=== PATIENT | male | born 1985 ===

== ENCOUNTER 2017-04-13 03:13 | Emergency (ER) | payer SELFPAY ==
[2017-04-13 03:55] VITALS: RESP 18; TEMP 98.2
--- NOTE | 2017-04-13 03:57 | ED PDOC ---
Arrival/HPI - General Chief Complaint: Alcohol Ingestion Time Seen by Provider: 04/13/17 03:33 Historian: Patient - History of Present Illness Narrative History of Present Illness (Text): 04/13/17 03:45 32 year old male brought in by EMS, who presents to the emergency department for public intoxication. Patient admitted to drinking alcohol this evening. Patient denies any drug use. At presents, patient is awake and alert but inebriated. No somatic complaints offered. Time/Duration: 1-3 hours Symptom Onset: Gradual Symptom Course: Unchanged Severity Level: Mild Context: Street Past Medical History - Provider Review Nursing Documentation Reviewed: Yes - Psychiatric Hx Substance Use: No Family/Social History - Physician Review Nursing Documentation Reviewed: Yes Family/Social History: No Known Family HX Smoking Status: Unknown If Ever Smoked Hx Alcohol Use: Yes Hx Substance Use: No Allergies/Home Meds Allergies/Adverse Reactions: Allergies No Known Allergies Allergy (Verified 04/13/17 03:37) Home Medications: Home Meds Medication Instructions Recorded Confirmed Unobtainable 04/13/17 04/13/17 Review of Systems - Review of Systems Systems not reviewed;Unavailable: Intoxicated Physical Exam Vital Signs Reviewed: Yes Vital Signs Temp Pulse Resp BP Pulse Ox 04/13/17 03:55 98.2 F 81 18 130/72 95 Temperature: Afebrile Blood Pressure: Normal Pulse: Regular Respiratory Rate: Normal Appearance: Positive for: Other (intoxicated) Pain Distress: None Mental Status: Positive for: Alert and Oriented X 3 - Systems Exam Head: Present: Atraumatic, Normocephalic Pupils: Present: PERRL Extroacular Muscles: Present: EOMI Conjunctiva: Present: Normal Ears: Present: NORMAL TM Mouth: Present: Moist Mucous Membranes Neck: Present: Normal Range of Motion Respiratory/Chest: Present: Clear to Auscultation, Good Air Exchange. No: Respiratory Distress, Accessory Muscle Use Cardiovascular: Present: Regular Rate and Rhythm, Normal S1, S2. No: Murmurs Abdomen: Present: Normal Bowel Sounds. No: Tenderness, Distention, Peritoneal Signs Back: Present: Normal Inspection Upper Extremity: Present: Normal Inspection. No: Cyanosis, Edema Lower Extremity: Present: Normal Inspection. No: Edema Neurological: Present: Motor Func Grossly Intact, Normal Sensory Function Skin: Present: Warm, Dry, Normal Color. No: Rashes Psychiatric: Present: Intoxicated Medical Decision Making ED Course and Treatment: 04/13/17 03:57 Impression: 32 year old male brought in by EMS for public intoxication tonight Differential Diagnosis included but are not limited to: EtOH Plan: -- Reassess and disposition Progress Notes: - Transfer of Care Patient signed out to :Nicolas Galvan Other: Pending sobriety/reassess/final disposition - Scribe Statement The provider has reviewed the documentation as recorded by the Scribe Cyndi Torres Provider Scribe Attestation: All medical record entries made by the Scribe were at my direction and personally dictated by me. I have reviewed the chart and agree that the record accurately reflects my personal performance of the history, physical exam, medical decision making, and the department course for this patient. I have also personally directed, reviewed, and agree with the discharge instructions and disposition. Disposition/Present on Arrival - Present on Arrival Any Indicators Present on Arrival: No History of DVT/PE: No History of Uncontrolled Diabetes: No Urinary Catheter: No History of Decub. Ulcer: No History Surgical Site Infection Following: None - Disposition Have Diagnosis and Disposition been Completed?: No Diagnosis: Alcohol intoxication Disposition Time: 07:00 Condition: STABLE Forms: [employer] (Bulgarian)
[2017-04-13 07:56] VITALS: BP 125/75; PULSE 78; O2SAT 98
== END 2017-04-13 07:33 | disposition home or self-care (01) ==
LOC: ED 03:13
DX: F10.129 Alcohol abuse with intoxication, unspecified (principal)